=== PATIENT | male | born 1975 | race Caucasian/White ===

== ENCOUNTER → 2021-10-07 | Day surgery (SDC) | payer OTHER ==
[~2021-10-07] VITALS: Ht 180 cm; Wt 100.0 kg
[~2021-10-07] MED LIST: ASPIRIN325 MG PO; EPIDIOLEX100 MG/1 M PO; FOLIXAPURE5000 UNIT PO; IBUPROFEN400 MG PO; IBUPROFEN800 MG PO; MULTIPLE VITAM1 EACH PO; PERCOCET 5-3251 EACH PO; SUMATRIPTAN SUC50 MG PO; TAMIFLU 75MG CA75 MG PO; TAMSULOSIN HCL0.4 MG PO; ZOFRAN4 MG PO
[2021-10-07 09:28] LABS: ALBUMIN 4.2 g/dL (3.4-5.0); BILIRUBIN - TOTAL 0.7 mg/dL (0.2-1.0); CREATININE 1.11 mg/dL (0.67-1.17); GLOBULIN (CALCULATION) 3.2 g/dL; POTASSIUM 3.8 mmol/L (3.5-5.1); TOTAL PROTEIN 7.4 g/dL (6.4-8.2)
== END | disposition home or self-care (01) ==
LOC: FAS 08:26
PROVIDERS: Surgery
DX: Z12.11 Encounter for screening for malignant neoplasm of colon (principal); D12.0 Benign neoplasm of cecum; D12.6 Benign neoplasm of colon, unspecified; K58.9 Irritable bowel syndrome, unspecified; K57.30 Diverticulosis of large intestine without perforation or abscess without bleeding; Z88.8 Allergy status to other drugs, medicaments and biological substances; Z86.010 Personal history of colon polyps; Z80.0 Family history of malignant neoplasm of digestive organs
CPT/HCPCS: 36415; 80053; J1610; J2704; J7120